=== PATIENT | male | born 1985 | race Caucasian/White ===

== ENCOUNTER 2021-01-27 11:12 | Emergency (ER) | payer BC, SELFPAY ==
[2021-01-27 11:22] VITALS: BP 135/85; PULSE 78; RESP 20; TEMP 36.8; O2SAT 97
--- NOTE | 2021-01-27 11:22 | ED.URI ---
HPI - URI/Sore Throat General Chief Complaint: Upper Respiratory Infection Stated Complaint: sore throat runny nose Time Seen by Provider: 01/27/21 11:22 Source: patient and RN notes reviewed History of Present Illness HPI Narrative: Patient is a 35-year-old male who presents the urgent care with complaints of sore throat and runny nose. Patient states that it started on Sunday and now he is having some painful swallowing. Patient denies of any known exposure to Covid, strep or influenza. Patient states he has had chills and sweats but denies of any known fever. Denies of nausea, vomiting. Reports of a nonproductive cough. No other acute complaints. No acute distress noted. Patient aware of the plan of care. Some parts of this dictation were generated by voice recognition software and may contain typographical and/or grammatical inaccuracies. Related Data Allergies Allergy/AdvReac Type Severity Reaction Status Date / Time No Known Allergies Allergy Verified 01/27/21 11:25 Review of Systems Review of Systems: Narrative: CONSTITUTIONAL: Denies fever, chills, or sweats. EYES: Denies visual changes, redness, or discharge. ENT: Reports of sore throat and rhinorrhea CARDIOVASCULAR: Denies chest pain, palpitations, or edema. RESPIRATORY: Reports of nonproductive cough without dyspnea GASTROINTESTINAL: Denies abdominal pain, nausea, vomiting, or diarrhea. GENITOURINARY: Denies dysuria or hematuria. SKIN: Denies rash or itching. MUSCULOSKELETAL: Denies back pain, joint pain, or myalgia. NEUROLOGIC: Denies headache, numbness, or weakness. All other systems reviewed are negative, except as documented in HPI. PMFSH Comments At the time of my signature, I reviewed and agree with the nursing past medical, surgical, social, and family history. There is no relevant family history pertinent to the patient complaint. Exam Narrative: Exam Narrative: GENERAL: This is a well-nourished, well-developed patient, in no apparent distress. HEAD: normocephalic, atraumatic. EYES: PERRL. Sclera clear/white. Vision is grossly intact. EARS: External ears normal, auditory canals clear and without drainage, TMs normal without perforation. Hearing grossly intact. NOSE: External nose normal with no obvious nasal discharge, nares without redness, no rhinorrhea. THROAT: Mucous membranes moist, mild erythema noted posterior oropharynx with mild postnasal drainage NECK: Neck supple, non-tender without lymphadenopathy, masses or thyromegaly. CARDIOVASCULAR: Regular rate and rhythm without murmurs, gallops, or rubs. RESPIRATORY: Clear to auscultation. Breath sounds equal bilaterally. No wheezes, rales, or rhonchi. SKIN: warm, intact with no suspicious lesions or rash, good texture and turgor. NEURO: awake, alert, and oriented to person, place and time. There were no obvious focal neurologic abnormalities. EXTREMITIES: No clubbing, cyanosis, or edema. Course Vital Signs Vital signs: Vital Signs Temperature 98.2 F 01/27/21 11:22 Pulse Rate 78 01/27/21 11:22 Respiratory Rate 20 01/27/21 11:22 Blood Pressure 135/85 01/27/21 11:22 Pulse Oximetry 97 01/27/21 11:22 Temperature 98.2 F 01/27/21 11:22 Pulse Rate 78 01/27/21 11:22 Respiratory Rate 20 01/27/21 11:22 Blood Pressure 135/85 01/27/21 11:22 Pulse Oximetry 97 01/27/21 11:22 Reviewed MDM - URI/Sore Throat MDM Narrative Medical decision making narrative: Reviewed lab results with the patient. He is aware that strep swab was negative. Educated patient on culture we will call within 72 hours if culture is positive and antibiotics are necessary. Your Covid PCR test will result in approximately 24 to 48 hours. You will be called with results on your PCR however if you do not receive a call within 2 days, you may call the facility and check on your results. Symptoms are likely related to weather change/allergies/viral. Take [id number] Claritin/Zyrtec and use ibuprofe
[2021-01-28 14:59] LABS: SARS-CoV-2 RNA PCR Negative
== END 2021-01-27 11:51 | disposition home or self-care (01) ==
PROVIDERS: Emergency Provider Nurse Practitioner Family; PCP Internal Medicine Infectious Disease
DX: B34.9 Viral infection, unspecified (principal); J02.9 Acute pharyngitis, unspecified; Z20.822 Contact with and (suspected) exposure to COVID-19; Z86.16 Personal history of COVID-19
CPT/HCPCS: 87081; 87880; 99203; C9803; G0463; U0003; U0005

== ENCOUNTER 2024-05-27 09:17 | Emergency (ER) | payer OTHER, SELFPAY ==
[2024-05-27 09:52] VITALS: BP 144/93; PULSE 57; RESP 20; TEMP 36.8; O2SAT 100
[2024-05-27 10:17] LABS: EDUAAPPEAR Clear; EDUABILI Negative; EDUABLOOD Negative; EDUACOLOR1 Yellow; EDUAGLUCOSE Negative; EDUAKETONE Negative; EDUALEUKO Negative; EDUANITRATE Negative; EDUAPROTEIN Negative; EDUAUROBILI 0.2
--- NOTE | 2024-05-27 10:19 | ED.BACK ---
HPI - Back Pain/Injury General Chief Complaint: Urogenital-Male Stated Complaint: Right Flank Pain/Low Back Pain History of Present Illness HPI Narrative: Patient is a 30-year-old male, without significant past medical history, presents to [facility] with right flank pain, onset of symptoms 4 days ago. He states that the pain seems worse with movement, is throbbing and describes a pressure, constant nature but exacerbated with certain positions. He denies radicular symptoms, he denies recollection of injury. He has no dysuria or changes in urinary frequency. he does have history of kidney stones however he is on certain if this pain is reminiscent of previous known history. he has no saddle anesthesia or bowel or bladder incontinence. He has not attempted any modifying factors. He has no other complaints. Related Data Home Medications Medication Instructions Recorded Confirmed No Home Medications 05/27/24 05/27/24 Allergies Allergy/AdvReac Type Severity Reaction Status Date / Time No Known Allergies Allergy Verified 05/27/24 09:55 Review of Systems Musculoskeletal: Comments: refer to HPI Exam Const: General: healthy appearing and no acute distress Nutritional Appearance: well nourished Orientation/consciousness: patient oriented x3 Limitations: no limitations HENMT: Head: normal to inspection Ears: external ears normal Face and sinus: normal facial exam Mouth: Yes Normal oral and palatal mucosa present Teeth and gingiva: dentition normal Throat: posterior oropharynx normal Eyes: Conjunctivae: conjunctivae normal Neck: Neck: normal visual inspection Resp: Effort & Inspection: normal respiratory effort Auscultation: clear to auscultation bilaterally Cardio: Rate: bradycardic Rhythm: regular rhythm Back/Spine/Pelvis: Back: no CVA tenderness Other: patient is tender to palpation of the right lumbar paraspinal muscles, there is no rash appreciated. No palpable spasm, no CT or L-spine point tenderness, step-offs he, negative straight leg raise bilaterally Skin: Rashes: no rashes Neuro: General: patient oriented x3, moves all extremities, no meningeal signs, no focal motor deficits and CN's II-XI intact bilaterally Cranial nerves: Yes Nystagmus not present Speech: normal speech Gait exam (Neuro): Normal gait present Course Course Emergency Course: Patient has no evidence of shingles, he has no microscopic hematuria, lowering concerned for acute renal colic however this does not exclude this diagnosis. Patient is advised he may take ibuprofen at home, he may rest and ice the area and if his symptoms become more severe, he is to proceed to the ER stat CT imaging may be obtained, as indicated to evaluate for a kidney stone. Patient is agreeable with plan. Level of Care: Express Care Visit ([id number]) Vital Signs Vital signs: Vital Signs Temperature 36.8 C 05/27/24 09:52 Pulse Rate 57 L 05/27/24 09:52 Respiratory Rate 20 05/27/24 09:52 Blood Pressure 144/93 H 05/27/24 09:52 Pulse Oximetry 100 05/27/24 09:52 Oxygen Delivery Room Air 05/27/24 09:52 Temperature 36.8 C 05/27/24 09:52 Pulse Rate 57 L 05/27/24 09:52 Respiratory Rate 20 05/27/24 09:52 Blood Pressure 144/93 H 05/27/24 09:52 Pulse Oximetry 100 05/27/24 09:52 Oxygen Delivery Room Air 05/27/24 09:52 MDM - Back Pain/Injury MDM Narrative Medical decision making narrative: Urinalysis is negative, ibuprofen for conservative treatment as directed [id number]. Follow up with PCP in 3-5 days. ER if pain becomes more severe for a renal protocol CT, further diagnostic workup as indicated Lab Data Labs: Lab Results 05/27/24 Range/Units 10:14 POC Urine Color Yellow POC Urine Clarity Clear POC Urine pH 6.0 POC Ur Specif [place] 1.030 POC Urine Protein Negative POC Ur Glucose (UA) Negative POC Urine Ketones Negative POC Urine Blood Negative POC
== END 2024-05-27 10:27 | disposition home or self-care (01) ==
PROVIDERS: Emergency Provider Nurse Practitioner Family; PCP Internal Medicine Infectious Disease
DX: R07.89 Other chest pain (principal)
CPT/HCPCS: 81003; 99212; G0463

== ENCOUNTER 2024-08-05 08:09 | Emergency (ER) | payer OTHER, SELFPAY ==
--- NOTE | ~2024-08-05 | XR_ITS ---
XR toe 1st RT min 2V Ordering provider: Savannah Castillo APRN History: . pain rt 1st toe , hpyperextended . Comparison: None. FINDINGS: BONES: No acute fracture or dislocation. JOINT SPACES: Normal. SOFT TISSUES: Normal. IMPRESSION: No acute osseous abnormality. Reviewed, dictated and finalized at location A. [employer]
[2024-08-05 08:16] VITALS: BP 128/90; PULSE 77; RESP 16; TEMP 36.6; O2SAT 100
--- NOTE | 2024-08-05 08:22 | ED.LOWEXIN ---
HPI - Extremity Injury (Lower) General Chief Complaint: Extremity Injury, Lower Stated Complaint: right foot toe injury Source: patient Mode of arrival: ambulatory Limitations: no limitations History of Present Illness HPI Narrative: 38-year-old male presented for complaint of right great toe pain and swelling after injury 3 days ago. States he bent the toe backwards towards the top of the foot while moving a couch. since then endorses pain with walking, swelling and bruising. Range of motion is limited due to pain. Endorses mild tingling to the end of the toe. Related Data Allergies Allergy/AdvReac Type Severity Reaction Status Date / Time No Known Allergies Allergy Verified 08/05/24 08:29 Review of Systems Review of Systems: CONSTITUTIONAL: Denies body aches, fever, chills CARDIOVASCULAR: Denies chest pain, palpitations, or edema. RESPIRATORY: Denies cough or dyspnea. SKIN: Denies wounds. MUSCULOSKELETAL: Reports right great toe pain NEUROLOGIC: Denies headache, numbness, tingling, or weakness. All systems reviewed & are unremarkable except as noted in HPI and below PMFSH Past Medical History Medical History (Updated 08/05/24 @ 09:05 by Savannah Castillo, SEAT [employer]) Gout Comments At time of signature, I have reviewed and agree with nursing past medical, surgical, social and family history unless otherwise noted. Please see nursing chart for further information. There is no relevant family history pertinent to the presenting complaint Exam Narrative: GENERAL: Well-appearing CHEST: Speaks in full sentences. No respiratory distress. HEART: Regular rate and rhythm. Normal and equal peripheral pulses. EXTREMITIES: Right great toe with mild swelling and bruising, has normal strength and sensation. decreased range of motion of great toe due to pain with movement. Tenderness with palpation to proximal phalanx. No open wounds, or obvious deformity; alignment normal, pulse palpable Right +1, Left +2, skin warm, dry, pink. Capillary refill less than 3 seconds. SKIN: Warm, dry, NEURO: Alert and oriented x3. PSYCH: Normal mood and affect Course Course Emergency Course: Patient is aware of diagnosis, understands and agrees to treatment plan. Anticipatory guidance given. Patient agrees to follow-up as directed and is aware of reasons to seek care at the emergency department. Portions of this record may have been created with voice recognition software Level of Care: Express Care Visit Vital Signs Vital signs: Vital Signs Temperature 97.9 F 08/05/24 08:16 Pulse Rate 77 08/05/24 08:16 Respiratory Rate 16 08/05/24 08:16 Blood Pressure 128/90 08/05/24 08:16 Pulse Oximetry 100 08/05/24 08:16 Oxygen Delivery Room Air 08/05/24 08:16 Temperature 97.9 F 08/05/24 08:16 Pulse Rate 77 08/05/24 08:16 Respiratory Rate 16 08/05/24 08:16 Blood Pressure 128/90 08/05/24 08:16 Pulse Oximetry 100 08/05/24 08:16 Oxygen Delivery Room Air 08/05/24 08:16 Reviewed Procedures Orthopedic Splinting/Casting right foot: Lower Extremity Immobilizer: post-op shoe MDM - Extremity Injury (Lower) MDM Narrative Medical decision making narrative: Discussed physical exam findings an x-ray. Postop shoe applied to the right foot.. Advised supportive measures and signs/symptoms to go to the ER. Pt is appropriate for outpt treatment and f/u With ortho specialist. Differential Diagnosis Differential diagnosis: Likely fracture of toe and other ( toe sprain/strain, contusion) Imaging Data Radiologist's impression: Patient: Douglas Garcia : 1985 MR#: [id number] Age: 38 Acct:[id number] Loc: [facility] ADM Date: 08/05/24Attending Dr: Ordering Physician: Savannah Castillo APRN Date of Service: 08/05/24 Procedure(s): XR toe 1st RT min 2V Accession Number(s): [id number] cc: Savannah Castillo APRN; Kin, Melecio Zaman MD~ XR toe 1st RT min 2V Ordering provider: Savannah Castillo APRN History: . pain rt 1st toe , hpyperextended . Comparison: None. FINDINGS: BONES: No acute fracture or dislocation. JOINT SPACES: Normal. SOFT TISSUES: Normal. IMPRESSION: No acute osseous abnormality. Discharge Plan Discharge Clinical Impression: Sprain of toe Patient Disposition: Home, Self-Care Condition: Stable Instructions: Toe Fracture (ED) Additional Instructions: Rest and elevate the right leg; bear weight as tolerated avoid excessive walking, running or jumping until pain is fully resolved Apply ice 15-20 minute intervals several times a day use the postop shoe when walking Motrin 800mg every 8 hours, alternate with Tylenol 1000mg every 8 hours as needed Follow up with your primary care provider as needed in 1 week go to the ER for worsening symptoms or concerns Prescriptions: New ibuprofen 800 mg tablet 800 mg PO TID PRN (Reason: pain) Qty: 15 0RF Follow-up/Referrals: Marquis Llanes MD [Physician] - Kin,Melecio Abdul MD [Primary Care Provider] - Stand Alone Forms: Work/School Release IP
== END 2024-08-05 09:06 | disposition home or self-care (01) ==
PROVIDERS: Emergency Provider Nurse Practitioner Family; PCP Internal Medicine Infectious Disease
DX: S93.501A Unspecified sprain of right great toe, initial encounter (principal); X50.9XXA Other and unspecified overexertion or strenuous movements or postures, initial encounter; M10.9 Gout, unspecified
CPT/HCPCS: 73660; 99213; G0463